=== PATIENT | female | born 1950 | race Caucasian/White ===

== ENCOUNTER 2024-11-22 08:15 | Day surgery (SDC) | payer OTHER, SELFPAY ==
[2024-11-22] VITALS (8 sets, daily range): BP systolic 129–150; BP diastolic 70–89; BMI 38.2
[2024-11-22] MEDS: LOW STRENGTH ASPIRIN 81 MG PO (09:03)
[2024-11-22] MEDS: NSS 303 ML IV (09:04)
[2024-11-22] MEDS: NSS 1000 IV (12:03)
--- NOTE | 2024-11-22 12:14 | ITS.CL.CATH ---
[employer] - Catheterization
Cardiac Catheterization
Procedure Report:
LEFT HEART CATHETERIZATION
Date of Procedure: November 22, 2024
Procedures performed:
1: Coronary angiography
2: Left ventricular hemodynamic assessment
Primary Care Physician: Dr. Salena Flores
Primary Publication Designer: Dr. Hebert Nino
INDICATION: The patient is a 74-year-old woman with a past medical history significant for prior smoking with COPD, hypertension, obesity, renal insufficiency, and hyperlipidemia who presents with increasing dyspnea on exertion. Nuclear perfusion
imaging study performed on November 03 suggested possible LAD territory and inferior wall ischemia versus attenuation artifact.
ACCESS: The patient was prepped and draped in usual sterile fashion. A 6 [place] sheath was placed in the right radial artery using the Seldinger over the wire technique.
HEMODYNAMIC FINDINGS (mmHg):
LV(s/d,EDP): 128/10, 14
Ao(s/d,m): 128/67, 92
ANGIOGRAPHIC FINDINGS:
Single-plane Left Ventriculography in [facility] Projection: Not done.
Coronary Angiography:
Dominance: Right
Left Main: Normal
Left Anterior Descending: The left anterior descending artery is a medium caliber vessel that gives rise to a very high first diagonal branch that courses in a ramus distribution. The first diagonal branch is a relatively large vessel that has a
calcific 50% proximal stenosis with normal distal flow. The LAD itself is fairly heavily calcified in the proximal and midportion. Vascular overlap makes it difficult to clearly see the LAD and diagonal ostium. They appear free of focal
obstructive disease. The LAD has diffuse moderate proximal disease with at worst a 40 to 50% stenosis at the first major septal branch. There are 3 small to medium caliber distal diagonal branches that are widely patent. The distal LAD is widely
patent with normal flow.
Left Circumflex: The circumflex is a medium caliber nondominant system that has 2 major obtuse marginal branches. These vessels are widely patent with no focal obstructive disease.
Right Coronary: The right coronary artery is a fairly large caliber dominant vessel that gives rise to a large caliber posterior descending artery. The right coronary artery has a smooth 40% proximal stenosis at the takeoff of the acute RV marginal
branch. The remainder of the vessels are widely patent with normal flow.
Fluoroscopy Time (min): 5.6
Radiation Dose (mGy): 465
DAP (Gy.cm2): 28
Closure device: None. A TR band was applied for hemostasis at the right wrist.
Complications: None.
ASSESSMENT:
1: Moderate nonobstructive coronary artery disease with no clear angiographic explanation for the nuclear perfusion findings. I suspect these were artifactual.
2: Normal left ventricular filling pressures.
CONCLUSIONS and RECOMMENDATIONS:
1: Continue medical therapy for coronary artery disease, hypertension, hyperlipidemia.
2: Traditional risk factor modification with diet and exercise.
Marychuy Sifuentes M.D.
Copy to: Dr. Salena Flores
== END 2024-11-22 14:35 | disposition home or self-care (01) ==
LOC: CATH 08:15
PROVIDERS: ATTENDING PHYSICIAN Internal Medicine Interventional Cardiology; FAMILY PHYSICIAN Internal Medicine; OTHER PHYSICIAN Internal Medicine Cardiovascular Disease
DX: I25.10 Atherosclerotic heart disease of native coronary artery without angina pectoris (principal); E78.5 Hyperlipidemia, unspecified; E66.9 Obesity, unspecified; I10 Essential (primary) hypertension; J44.9 Chronic obstructive pulmonary disease, unspecified; Z87.891 Personal history of nicotine dependence; R06.09 Other forms of dyspnea; N28.9 Disorder of kidney and ureter, unspecified
CPT/HCPCS: 93458; C1894; Q9967